=== PATIENT | male | born 1965 | race Caucasian/White ===

== ENCOUNTER 2022-08-24 02:14 | Emergency (ER) | payer MEDICAID ==
[~2022-08-24] VITALS: Ht 182.9 cm; Wt 88.5 kg
[2022-08-24 02:21] VITALS: BP_SYST 147
[2022-08-24] MEDS ORDERED: MAG HYDROX/AL HYDROX/SIMETH 30 ML, DICYCLOMINE HCL 20 MG, LIDOCAINE VISCOUS 2% 15ML (PO... PO ONE ×3 (02:30)
--- NOTE | 2022-08-24 02:34 | NUR ---
PATIENT BROUGHT IN FOR INTERMITTENT CHEST PAIN THAT IS SHARP IN NATURE, PATIENT ADMITS TO DRINKING 325ML OF VODKA 2 HOURS AGO, DENIES CHEST PAIN AT THIS TIME, KISTORY OF INSOMNIA, BPH, ANXIETY, GERD, ETOH.
--- NOTE | 2022-08-24 02:36 | NUR ---
PATIENT PLACED IN ED BED 6, REORT GIVEN TO LAURYN
[2022-08-24 02:47] LABS: BASOPHILS % (AUTO) 0.6 % (0.0-2.0); EOSINOPHILS # (AUTO) 0.1 K/uL (0.0-0.4); HEMATOCRIT 42.9 % (36-54); HEMOGLOBIN 14.7 g/dL (14.0-18.0); LYMPHOCYTES # (AUTO) 2.3 K/uL (1.0-5.5); LYMPHOCYTES % (AUTO) 42.7 % (20.5-51.5); MEAN CORPUSCULAR HEMOGLOBIN 29 pg (27-31); MEAN CORPUSCULAR HGB CONC 34 % (32-36); MEAN CORPUSCULAR VOLUME 86 fL (79.0-98.0); MONOCYTES # (AUTO) 0.5 K/uL (0.0-1.0); MONOCYTES % (AUTO) 8.4 % (1.7-9.3); NEUTROPHILS # (AUTO) 2.6 K/uL (1.8-7.7); NEUTROPHILS % (AUTO) 47.3 % (40.0-70.0); PLATELET COUNT (AUTO) 211 K/uL (130-430); RED BLOOD CELL COUNT(AUTO) 5.01 MIL/uL (4.2-6.2); RED CELL DISTRIBUTION WIDTH 13.7 % (9.0-15.0); WHITE BLOOD COUNT (AUTO) 5.5 K/uL (4.8-10.8)
--- NOTE | 2022-08-24 03:14 | NUR ---
PT BIB BLS FROM HOME C/O INTERMITTAN CP. PT STATES PAIN COMES AND GOES AND IS SHARP AND NON RADIATING. PT STATES DIARRHEA X1DAY. PT HX OF ETHONOL, GERD, ANXIETY AND INSOMNIA. PT RESTING IN BED ON THE MONITOR WITH THE RAILS UP VSS
--- NOTE | 2022-08-24 03:30 | NUR ---
ER at bedside examining patient.
[2022-08-24] MEDS ORDERED: FAMO20TA8 PO (03:40)
[2022-08-24 03:42] LABS: ALANINE AMINOTRANSFERASE 38 U/L (12-78); ALBUMIN 3.9 g/dL (3.4-4.8); ANION GAP 7 (5-15); ASPARTATE AMINOTRANSFERASE 27 U/L (10-37); CALCIUM 8.8 mg/dL (8.4-11.0); CHLORIDE 100 mmol/L (98-107); CREATININE 1.11 mg/dL (0.55-1.30); GFR AFRICAN AMERICAN 88 mL/min (>90); GLUCOSE 127 mg/dL (70-99); UREA NITROGEN, BLOOD 15 mg/dL (8-21)
[2022-08-24 03:44] LABS: LIPASE 139 U/L (73-393)
[2022-08-24] MEDS ORDERED: LORazepam 1 MG TABLET PO ONE (03:45)
[2022-08-24 06:40] VITALS: BP_SYST 137
--- NOTE | 2022-08-24 06:40 | NUR ---
Patient given written and verbal discharge instructions and verbalizes understanding. ER MD discussed with patient the results and treatment provided. Patient in stable condition. ID arm band removed. Rx of FAMOTIDINE given. Patient educated on NON SPECIFIC CHEST PAIN and to follow up with PMD. Pain Scale . Opportunity for questions provided and answered. Medication side effect fact sheet provided.
== END 2022-08-24 06:40 | disposition home or self-care (01) ==
LOC: SED 02:14
DX: R07.9 Chest pain, unspecified (principal); Z79.899 Other long term (current) drug therapy
CPT/HCPCS: 99285; 71045; 80053; 83690; 85025; 84484; 36415; 93005; J2001

== ENCOUNTER 2023-05-17 19:38 | Emergency (ER) | payer MEDICAID ==
[~2023-05-17] VITALS: Ht 182.9 cm; Wt 90.7 kg
[~2023-05-17 19:38] MED LIST: FAMO20TA8 PO
[2023-05-17 19:54] VITALS: BP_SYST 158; PULSE 96; RESP 32; TEMP 98.5; O2SAT 97
[2023-05-17 20:28] LABS: BASOPHILS % (AUTO) 0.3 % (0.0-2.0); EOSINOPHILS % (AUTO) 0.5 % (0.0-4.0); HEMATOCRIT 40.6 % (36-54); HEMOGLOBIN 14.2 g/dL (14.0-18.0); LYMPHOCYTES # (AUTO) 2.2 K/uL (1.0-5.5); LYMPHOCYTES % (AUTO) 35.5 % (20.5-51.5); MEAN CORPUSCULAR HEMOGLOBIN 30 pg (27-31); MEAN CORPUSCULAR HGB CONC 35 % (32-36); MEAN CORPUSCULAR VOLUME 86 fL (79.0-98.0); MONOCYTES # (AUTO) 0.5 K/uL (0.0-1.0); MONOCYTES % (AUTO) 7.5 % (1.7-9.3); NEUTROPHILS # (AUTO) 3.4 K/uL (1.8-7.7); NEUTROPHILS % (AUTO) 56.2 % (40.0-70.0); PLATELET COUNT (AUTO) 259 K/uL (130-430); RED CELL DISTRIBUTION WIDTH 14.4 % (9.0-15.0); WHITE BLOOD COUNT (AUTO) 6.1 K/uL (4.8-10.8)
[2023-05-17 20:43] LABS: ANION GAP 7 (5-15); CALCIUM 8.4 mg/dL (8.4-11.0); CARBON DIOXIDE 26 mmol/L (23-29); CHLORIDE 102 mmol/L (98-107); CREATININE 1.27 mg/dL (0.55-1.30); GFR AFRICAN AMERICAN 75 mL/min (>90); GLUCOSE 144 mg/dL (74-106); POTASSIUM 3.3 mmol/L (3.5-5.1); SODIUM SERUM 135 mmol/L (136-145); UREA NITROGEN, BLOOD 16 mg/dL (8-21)
[2023-05-17] MEDS: ONDANSETRON HCL 4 MG/2 ML VIAL IVP ONE (20:48)
[2023-05-17 20:49] LABS: GFR NON AFRICAN-AMERICAN 62 mL/min (>90)
[2023-05-17] MEDS: NACL 0.9% 1,000 ML IV ONE (20:49)
[2023-05-17] MEDS: LORazepam 2 MG/ML VIAL IVP ONE (20:49)
[2023-05-17 20:50] LABS: LIPASE 46 U/L (16-77)
[2023-05-17] MEDS: PANTOPRAZOLE SODIUM 40 MG/VIAL (PROTONIX) IVP ONE (20:50)
[2023-05-17 20:55] LABS: ALCOHOL, BLOOD < 3 mg/dL (<10)
[2023-05-17] MEDS: POTASSIUM CHLORIDE 20 MEQ/PKT PACKET PO ONE (21:36)
[2023-05-17] MEDS ORDERED: ONDA-8 TL (22:27)
[2023-05-17] MEDS ORDERED: OMEP20CA15 PO (22:27)
[2023-05-17] MEDS: MAG-AL HYDROX/SIMETH 30 ML UDC PO ONE (22:54)
[2023-05-17] MEDS: LIDOCAINE VISCOUS 2%, 15 ML UDC MM ONE (22:54)
[2023-05-17] MEDS ORDERED: DICYCLOMINE HCL 10 MG/5 ML SOLUTION ONE (22:55)
[2023-05-17 23:00] VITALS: BP_SYST 144; PULSE 77; RESP 13; TEMP 98.8; O2SAT 96
[2023-05-17] MEDS: DICYCLOMINE HCL 10 MG CAPSULE PO ONE (23:01)
[2023-05-17] MEDS: DICYCLOMINE HCL 10 MG/5 ML SOLUTION PO ONE (23:27)
== END 2023-05-17 23:00 | disposition home or self-care (01) ==
LOC: SED 19:38
DX: K29.20 Alcoholic gastritis without bleeding (principal); K20.90 Esophagitis, unspecified without bleeding; F10.10 Alcohol abuse, uncomplicated; Y90.0 Blood alcohol level of less than 20 mg/100 ml; I25.10 Atherosclerotic heart disease of native coronary artery without angina pectoris
CPT/HCPCS: 99285; 96374; 71045; 96375; 96361; 80048; 83880; 83690; 83735; 85025; 84484; 36415; G0482; J2060; J2405; C9113; J2001

== ENCOUNTER 2023-11-30 19:05 | Emergency (ER) | payer MEDICAID ==
[~2023-11-30] VITALS: Ht 182.9 cm; Wt 88.5 kg
[~2023-11-30 19:05] MED LIST changes: +OMEP20CA15 PO; +ONDA-8 TL
[2023-11-30 19:29] VITALS: BP_SYST 158; PULSE 89; RESP 20; TEMP 97.4; O2SAT 97
[2023-11-30 20:00] LABS: BILIRUBIN,URINE NEGATIVE (NEGATIVE); BLOOD, URINE NEGATIVE (NEGATIVE); CLARITY/URINE CLEAR (CLEAR); COLOR,URINE YELLOW (YELLOW); GLUCOSE,URINE NEGATIVE (NEGATIVE); KETONES,URINE NEGATIVE (NEGATIVE); LEUKOCYTE ESTERASE ,URINE NEGATIVE (NEGATIVE); NITRITE, URINE NEGATIVE (NEGATIVE); PROTEIN URINE NEGATIVE (NEGATIVE); UROBILINOGEN,URINE 0.2 (0.2-1.0)
[2023-11-30 20:05] LABS: BASOPHILS % (AUTO) 0.7 % (0.0-2.0); EOSINOPHILS # (AUTO) 0.1 K/uL (0.0-0.4); EOSINOPHILS % (AUTO) 2.4 % (0.0-4.0); HEMOGLOBIN 13.5 g/dL (14.0-18.0); LYMPHOCYTES # (AUTO) 2.3 K/uL (1.0-5.5); LYMPHOCYTES % (AUTO) 43.9 % (20.5-51.5); MEAN CORPUSCULAR HEMOGLOBIN 30 pg (27-31); MEAN CORPUSCULAR HGB CONC 35 % (32-36); MEAN CORPUSCULAR VOLUME 86 fL (79.0-98.0); MONOCYTES # (AUTO) 0.4 K/uL (0.0-1.0); MONOCYTES % (AUTO) 7.5 % (1.7-9.3); NEUTROPHILS # (AUTO) 2.4 K/uL (1.8-7.7); NEUTROPHILS % (AUTO) 45.5 % (40.0-70.0); PLATELET COUNT (AUTO) 247 K/uL (130-430); RED BLOOD CELL COUNT(AUTO) 4.51 MIL/uL (4.2-6.2); RED CELL DISTRIBUTION WIDTH 13.5 % (9.0-15.0); WHITE BLOOD COUNT (AUTO) 5.2 K/uL (4.8-10.8)
[2023-11-30 20:26] LABS: ALBUMIN 3.7 g/dL (3.4-4.8); CALCIUM 9.4 mg/dL (8.4-11.0); CREATININE 1.21 mg/dL (0.55-1.30); POTASSIUM 3.8 mmol/L (3.5-5.1); TOTAL BILIRUBIN 0.3 mg/dL (0.0-1.0)
[2023-11-30 21:26] VITALS: BP_SYST 149; PULSE 98; RESP 18; TEMP 97.4; O2SAT 98
[2023-11-30] MEDS ORDERED: LORA-259 PO (21:29)
== END 2023-11-30 21:30 | disposition home or self-care (01) ==
LOC: SED 19:05
DX: N40.0 Benign prostatic hyperplasia without lower urinary tract symptoms (principal); Z79.899 Other long term (current) drug therapy; Z79.2 Long term (current) use of antibiotics
CPT/HCPCS: 36415; 80053; 81001; 81003; 85025; 99283